=== PATIENT | female | born 1995 | race Caucasian/White ===

== ENCOUNTER 2016-10-25 10:03 | Emergency (ER) | payer OTHER ==
[~2016-10-25] VITALS: Ht 165.1 cm; Wt 52.6 kg
[2016-10-25] MEDS ORDERED: SPIR25TA2 PO (10:20)
[2016-10-25] MEDS ORDERED: [UNRECOGNIZED DRUG - OTHER] (10:20)
[2016-10-25] MEDS ORDERED: ONDANSETRON 4MG/2ML VIAL (J2405) IV ONE (12:00)
[2016-10-25 12:12] LABS: BASO % 0.2 % (0.0-1.0); EOS # 0.1 K/mm3 (0.0-0.50); EOS % 1.1 % (0.0-3.0); LARGE UNSTAINED CELL # 0.1 K/mm3 (0.0-0.4); LARGE UNSTAINED CELL % 0.9 % (0.0-4.0); LYMPH # 0.6 K/mm3 (1.5-6.5); MEAN CORPUSCULAR HEMOGLOBIN 29.2 pg (27.0-33.0); MEAN CORPUSCULAR HGB CONC 34.1 g/dl (32.0-36.5); MEAN CORPUSCULAR VOLUME 85.4 fl (80.0-96.0); MONO # 0.2 K/mm3 (0.0-0.8); MONO % 3.2 % (0.0-5.0); NEUTROPHILS # 5.4 K/mm3 (1.8-7.7); NEUTROPHILS % 84.6 % (36.0-66.0); PLATELET COUNT, AUTOMATED 298 k/mm3 (150-450); RED CELL DISTRIBUTION WIDTH 12.2 % (11.5-14.5); WHITE BLOOD COUNT 6.4 K/mm3 (4.0-10.0)
[2016-10-25 12:42] LABS: ALBUMIN 3.6 GM/DL (3.2-5.2); ALBUMIN/GLOBULIN RATIO 0.84 (1.00-1.93); ALKALINE PHOSPHATASE 95 U/L (45-117); ALT/SGPT 12 U/L (12-78); ANION GAP 11 MEQ/L (8-16); AST/SGOT 10 U/L (15-37); BILIRUBIN,DIRECT 0.2 MG/DL (0.0-0.2); BILIRUBIN,TOTAL 0.8 MG/DL (0.2-1.0); BLOOD UREA NITROGEN 9 MG/DL (7-18); CALCIUM LEVEL 8.7 MG/DL (8.5-10.1); CARBON DIOXIDE LEVEL 27 MEQ/L (21-32); CHLORIDE LEVEL 103 MEQ/L (98-107); CREATININE FOR GFR 0.87 MG/DL (0.55-1.02); GLOMERULAR FILTRATION RATE > 60.0 (>60); GLUCOSE, FASTING 109 MG/DL (70-105); POTASSIUM SERUM 3.7 MEQ/L (3.5-5.1); SODIUM LEVEL 141 MEQ/L (136-145); TOTAL PROTEIN 7.9 GM/DL (6.4-8.2)
[2016-10-25] MEDS ORDERED: SODIUM CHLORIDE 0.9% 1000 ML IV SCH (13:00)
[2016-10-25] MEDS ORDERED: PANTOPRAZOLE 40MG INJ (PROTONIX) (C9113) IV SCH (13:00)
[2016-10-25 13:13] LABS: CONTROL LINE HCG INT CTR LINE PRESENT
--- NOTE | 2016-10-25 14:08 | REP ---
ABDOMINAL SERIES: Three views. HISTORY: Right upper quadrant abdominal pain. FINDINGS: Upright chest radiograph shows slight elevation right hemidiaphragm but is otherwise unremarkable. There is no evidence of infiltrate or free subdiaphragmatic air. Heart size is normal. Supine and erect views of the abdomen show air and some stool in a nondistended colon. No large or small bowel dilation is seen. No mass, organomegaly or pathologic calcification is seen. Psoas margins and flank stripes are intact. IMPRESSION: Negative abdominal series. Signed by Andrews Ojeda MD 10/25/2016 02:34 P
[2016-10-25] MEDS ORDERED: ZOFR4TAB3 PO (14:26)
[2016-10-25 14:40] VITALS: BP 102/56
== END 2016-10-25 14:43 | disposition home or self-care (01) ==
LOC: M ED 10:29
DX: A08.4 Viral intestinal infection, unspecified (principal); Z79.3 Long term (current) use of hormonal contraceptives
CPT/HCPCS: 74022; 80048; 80076; 83690; 84703; 85025; 93041; 96361; 96374; 96375; 99284; C9113; J2405